=== PATIENT | male | born 1930 | race Caucasian/White ===

== ENCOUNTER 2017-07-26 14:31 | Emergency (ER) | payer MEDICARE ==
[~2017-07-26] VITALS: Ht 167.6 cm; Wt 61.4 kg
[2017-07-26] MEDS ORDERED: SIMVASTATIN20 M1 PO (16:02)
[2017-07-26 19:30] VITALS: BP 176/70
== END 2017-07-26 19:30 | disposition home or self-care (01) ==
LOC: ED 14:31
DX: I95.1 Orthostatic hypotension (principal); E86.0 Dehydration; S70.311A Abrasion, right thigh, initial encounter; S80.811A Abrasion, right lower leg, initial encounter; R07.89 Other chest pain; Z91.81 History of falling; V03.00XA Pedestrian on foot injured in collision with car, pick-up truck or van in nontraffic accident, initial encounter; Y92.89 Other specified places as the place of occurrence of the external cause
CPT/HCPCS: J7030

== ENCOUNTER → 2017-08-09 | Outpatient (CLI) | payer MEDICARE ==
[2017-07-26 19:30] VITALS: BP 176/70
[~2017-08-09] MED LIST: SIMVASTATIN20 M1 PO
== END ==
LOC: VAS 08-01 09:26
DX: I95.1 Orthostatic hypotension (principal)

== ENCOUNTER → 2020-01-20 | Outpatient (CLI) | payer MEDICARE | LOC: RAD 16:18 | DX: I08.2 Rheumatic disorders of both aortic and tricuspid valves (principal); R60.0 Localized edema ==

== ENCOUNTER 2020-11-07 11:34 | Emergency (ER) | payer MEDICARE ==
[2020-11-07 12:06] LABS: HEMATOCRIT 37.4 % (42.0-52.0); HEMOGLOBIN 12.2 g/dL (13.5-18.0); MEAN CELL VOLUME 97 fl (78-100); MEAN CORPUSCULAR HEMOGLOBIN 32 pg (27-31); MEAN CORPUSCULAR HGB CONC 33 g/dL (33-37); PLATELET COUNT 113 K/mm3 (130-400); RED BLOOD COUNT 3.85 M/mm3 (4.20-5.60); RED CELL DISTRIBUTION WIDTH 14.6 % (11.5-14.5); WHITE BLOOD COUNT 6.5 K/mm3 (4.8-10.8)
[2020-11-07 12:14] LABS: ALBUMIN 3.1 g/dL (3.4-4.8); POTASSIUM 3.6 mmol/L (3.5-5.1)
[2020-11-07 12:16] LABS: CALCIUM 8.4 mg/dL (8.3-10.5)
[2020-11-07 12:17] LABS: TOTAL PROTEIN 5.6 g/dL (6.2-8.1)
[2020-11-07 12:19] LABS: TOTAL BILIRUBIN 0.9 mg/dL (0.2-1.2)
[2020-11-07 12:31] LABS: LYMPHOCYTE 9 % (20-51); MONOCYTE 10 % (3-10); NEUTROPHILS 80 % (42-75)
[2020-11-07] MEDS ORDERED: CLONIDINE HYDR0.1 MG PO (12:53)
[2020-11-07] MEDS ORDERED: AMLODIPINE BESYL5 MG PO (12:53)
[2020-11-07] MEDS ORDERED: ASPIR-TRIN325 M1 PO (12:54)
[2020-11-07] MEDS ORDERED: LOSARTAN POTASS50 M1 PO (12:54)
[2020-11-07] MEDS ORDERED: FLOMAX0.4 MG PO (12:54)
[2020-11-07] MEDS ORDERED: LEVOTHYROXINE0.05 MG PO (12:54)
[2020-11-07] MEDS ORDERED: LOPRESSOR 225 MG/TAB PO (12:54)
[2020-11-07 18:04] LABS: URINE APPEARANCE HAZY; URINE BILIRUBIN NEGATIVE (NEGATIVE); URINE COLOR LT YELLOW; URINE GLUCOSE NEGATIVE (NEGATIVE); URINE KETONE 1+ (NEGATIVE); URINE PROTEIN(semi-quant) NEGATIVE (NEGATIVE); URINE UROBILINOGEN NORMAL (NORMAL)
[2020-11-07 18:05] LABS: URINE BLOOD 50 ery/uL (NEGATIVE); URINE LEUKOCYTE ESTERASE TRACE (NEGATIVE); URINE NITRATE NEGATIVE (NEGATIVE); URINE WBC 0-1 /hpf (0-3)
[2020-11-07 18:06] LABS: URINE MUCUS PRESENT (NOT PRESENT)
[2020-11-07 18:29] VITALS: BP 171/76
== END 2020-11-07 19:04 | disposition other institution (70) ==
LOC: ED 11:34
PROVIDERS: Family Medicine
DX: G45.9 Transient cerebral ischemic attack, unspecified (principal); I10 Essential (primary) hypertension; E78.5 Hyperlipidemia, unspecified; E03.9 Hypothyroidism, unspecified; Z79.82 Long term (current) use of aspirin; Z79.890 Hormone replacement therapy
CPT/HCPCS: J0360

== ENCOUNTER 2020-11-07 17:45 | Inpatient (IN) | payer MEDICARE ==
[~2020-11-07] VITALS: Ht 167.6 cm; Wt 52.6 kg
[~2020-11-07 17:45] MED LIST changes: +AMLODIPINE BESYL5 MG PO; +ASPIR-TRIN325 M1 PO; +CLONIDINE HYDR0.1 MG PO; +FLOMAX0.4 MG PO; +LEVOTHYROXINE0.05 MG PO; +LOPRESSOR 225 MG/TAB PO; +LOSARTAN POTASS50 M1 PO
--- NOTE | 2020-11-07 18:29 | NUR ---
PT ADMITTED TO ROOM 306 AT THIS TIME, STABLE CONDITION, ADMISSION ORDERS REVIEWED, COMPLEX ASSESSMENT COMPLETED AND CHARTED, PT INTERMITTENTLY CONFUSED, LEFT SIDED WEAKNESS, UNSTEADY WEAK GAIT, MULTIPLE FALLS AT HOME RECENTLY REPORTED BY FAMILY, C/O LOWER BACK PAIN, DENIES FURTHER COMPLAINTS, PARTIALLY ORIENTED TO PRESIENT AND SITUATION, ORIENTED TO ROOM, BED ALARM ON AND CALL LIGHT WITHIN REACH
[2020-11-07 18:31] VITALS: BP 178/63
[2020-11-07 18:38] VITALS: BP 178/63
--- NOTE | 2020-11-07 18:38 | NUR ---
COUGHING NOTED WITH SWALLOWING FLUIDS, NOTIFIED, NOTED
--- NOTE | 2020-11-07 19:20 | NUR ---
Report received from Ivonne CASTELLANOS. Lance resting in bed at this time. A/O x4. Speech slightly slurred. L side book cleaner weaker then right. States has some back/hip pain S/P falls at home. Rates 5-6/10. Sharp at times. States PCP advised to take Tylenol. Will notify Assessment completed. Denies wants or needs. Reviewed call light system and bed alarms. Verbalizes understanding.
--- NOTE | 2020-11-07 20:00 | NUR ---
Trial drinks of water tried per request of Dr. Fleming. Patient sat up high fowlers position in bed. Instructed to tuck chin when he swallows. Took cup and drank 3 large drinks with slight cough x1, able to clear. Dr. Fleming notified.
--- NOTE | 2020-11-07 20:30 | NUR ---
Patient requesting food. Has pudding earlier with help of day ELECTRONICS HARDWARE DESIGN ENGINEER and tolerated well per her report. Given tuna noodle casserole and Jello per Dr. Fleming suggestion. ELECTRONICS HARDWARE DESIGN ENGINEER reports patient at 2-3 bites of each and became nauseated. Stopped eating, had no emesis and nausea subsided quickly. Dr. Fleming notifed and aware.
--- NOTE | 2020-11-07 21:00 | NUR ---
[place] 1 tab taken at this time for pain. No coughing noted with this med.
[2020-11-07 21:49] VITALS: BP 193/65
--- NOTE | 2020-11-08 01:56 | NUR ---
Patient awakened out of a sound sleep for vital signs. B/P improved. Less oriented then previous and would not lift L leg and L arm as well. Keeps falling asleep during assessment. Denies pain. Repositioned up in the bed and uses urinal with assist of INTERNATIONAL LOGISTICS COORDINATOR
[2020-11-08 01:59] VITALS: BP 163/75
[2020-11-08 05:53] VITALS: BP 180/71
--- NOTE | 2020-11-08 06:59 | NUR ---
Report to Maren CASTELLANOS.
--- NOTE | 2020-11-08 10:00 | NUR ---
Pt a/o x 4. C/O back pain - nothing new but has been falling at home he states. Abrasion to left forehead with some scabbing starting - no active bleeding or drainage noted. Pt Has unequal potato chip cooker machine with hands - weak with left hand and unable to lift left arm without assistance (less use than yesterday). aware of change. IV intact in left ac with r/s. Tele shows RSR with rates 60-90's. Call light in reach and chair alarm on.
[2020-11-08 10:19] VITALS: BP 188/70
--- NOTE | 2020-11-08 11:06 | NUR ---
Son calls to check on pt and will call later this afternoon when pt's is also able to talk.
--- NOTE | 2020-11-08 12:45 | NUR ---
Discussed thickened liquids with patient. Pt has done well with a few sips of H20 and tucks chin with swallowing. Took whole pills well without coughing. Pt verbalizes understanding to follow thickened liquids until see ST tomorrow. Report to EMANUEL Hanks.
[2020-11-08 14:07] VITALS: BP 187/68
--- NOTE | 2020-11-08 14:33 | NUR ---
Report received from Ani Moya RN and care assumed. Pt resting in bed with no needs or concerns at this time. Call light in reach, bed alarm on.
--- NOTE | 2020-11-08 18:01 | NUR ---
Pt requests [place] for back and hip pain since it helps right before bed. [place] 1 tab given per PRN orders. Pt took pill whole with thickened liquid. Tucked chin and no coughing or difficulting taking pill.
[2020-11-08 18:02] VITALS: BP 178/66
--- NOTE | 2020-11-08 18:56 | NUR ---
Report given to Jeff Rosario, FRAMING CARPENTER and care transferred.
--- NOTE | 2020-11-08 19:13 | NUR ---
Report received from Latonya CASTELLANOS. Patient resting in bed with bed alarm on. Call light in reach. Drowsy but oriented x4. Rates pain to back and hips 4/10 after receiving [place] at 1800. TELE in place with HR of 62. NSR. INT intact to L AC. Racebook Writer unequal with L arm noted to be more weak then last night and unable to lift off of bed without assist. L leg weaker as well, can lift off bed slightly independently. Uses urinal and voids 100 ML of yellow cloudy urine. Denies wants or needs at this time.
[2020-11-08 21:34] VITALS: BP 180/65
[2020-11-09 02:22] VITALS: BP 176/69
--- NOTE | 2020-11-09 04:13 | NUR ---
[place] given for pain to neck and back /. Swallows with thickened liquid withoout difficulty. No search engine marketing strategist or movement without assist to L arm.
[2020-11-09 05:52] VITALS: BP 174/66
--- NOTE | 2020-11-09 07:25 | NUR ---
Report to Afua CASTELLANOS.
[2020-11-09 09:56] VITALS: BP 155/69
[2020-11-09 14:43] VITALS: BP 195/61
--- NOTE | 2020-11-09 15:15 | NUR ---
A BP OF 195/61 IS REPORTED TO MICKIE SMITH AT THIS TIME. MAGUE GIVES AN ORDER TO GIVE AN EXTRA 5MG DOSE OF AMLODIPINE AT THIS TIME AND SHE WILL INCREASE THE DOSE TO 10MG TONIGHT.
--- NOTE | 2020-11-09 16:00 | NUR ---
Clinicals faxed to [facility] phone [phone] x [phone] Pending Auth number [id number]
--- NOTE | 2020-11-09 16:01 | NUR ---
Spoke with Dashawn Zhang. Provided him with the information that his dad will likely not be able to return home to provide care for their mother. Advised that his stroke has left him unable to assist himself on his left side. We would like to keep him for SWB and look to detention placement with assisted living for he and his or mold clamper care.
[2020-11-09 17:45] VITALS: BP 149/60
--- NOTE | 2020-11-09 18:10 | NUR ---
pt is c/o back pain. states it is a 7 out of 10. pt is provided prn pain medication for pain.
--- NOTE | 2020-11-09 19:00 | NUR ---
Report recevied from Afua CASTELLANOS. Patient resting in bed with eyes closed. Awakens easily to verbal stimuli. Oriented x4. Rates pain to back/R hip 3/10 after received analgesic. Assessment completed. L arm remains flaccid, able to move fingers slightly. LLE weak and able to lift barely off of bed. Uses call light to make needs known. Is continent of urine. Denies wants or needs. Bed alarm on. Call light in reach.
--- NOTE | 2020-11-09 20:25 | NUR ---
HS medications given. Takes whole with thickened liquids and no choking or coughing noted. B/P 167/74. Per Sandrine CORADO, only give extra dose of Norvasc tonight if Systolic over 180.
[2020-11-09 21:17] VITALS: BP 167/74
--- NOTE | 2020-11-09 23:58 | NUR ---
Patient noted to have episodes of frequent PVC's tonight. Asymptomatic. Provider notified.
[2020-11-10 02:16] VITALS: BP 166/69
--- NOTE | 2020-11-10 05:38 | NUR ---
Rested well all shift. Denied need for analgesic when this nurse inquired through the night. Staff in to help repositon in the bed but patient declined need. Called and used urinal PRN. Took AM medications whole with thickened liquids without difficulty.
[2020-11-10 06:09] VITALS: BP 154/78
--- NOTE | 2020-11-10 07:16 | NUR ---
Report to Norman CASTELLANOS.
--- NOTE | 2020-11-10 07:50 | NUR ---
Shift assessment completed. Pt pivot transferred to chair with 2 person assist. Reporting pain to his back. Pt alert and oriented to person, place and time. Pt with left-sided weakness. Unable to raise his left arm but able to move fingers slightly. Pt able to raise both legs but L. leg drifted. Pt unsure when his last BM was. Questionable vision changes to L. peripheral. Call light in reach.
--- NOTE | 2020-11-10 07:50 | NUR ---
Report received from EMANUEL Mcnamara.
[2020-11-10 09:43] VITALS: BP 172/78
[2020-11-10 10:29] LABS: HEMOGLOBIN 12.7 g/dL (13.5-18.0); MEAN CELL VOLUME 98 fl (78-100); MEAN CORPUSCULAR HEMOGLOBIN 32 pg (27-31); MEAN CORPUSCULAR HGB CONC 33 g/dL (33-37); MEAN PLATELET VOLUME 11.5 fl (7.4-10.4); PLATELET COUNT 155 K/mm3 (130-400); RED BLOOD COUNT 3.99 M/mm3 (4.20-5.60); RED CELL DISTRIBUTION WIDTH 14.9 % (11.5-14.5)
[2020-11-10 10:46] LABS: ALBUMIN 3.1 g/dL (3.4-4.8); POTASSIUM 3.9 mmol/L (3.5-5.1)
[2020-11-10 10:47] LABS: CALCIUM 8.5 mg/dL (8.3-10.5)
[2020-11-10 10:49] LABS: TOTAL PROTEIN 5.7 g/dL (6.2-8.1)
[2020-11-10 10:50] LABS: TOTAL BILIRUBIN 0.7 mg/dL (0.2-1.2)
[2020-11-10 11:30] LABS: LYMPHOCYTE 13 % (20-51); MONOCYTE 9 % (3-10); NEUTROPHILS 76 % (42-75)
--- NOTE | 2020-11-10 12:05 | NUR ---
Order received for pt to be discharged from acute to B care.
[2020-11-10 13:13] VITALS: BP 172/78
[2020-11-10 15:35] LABS: URINE APPEARANCE CLEAR; URINE BILIRUBIN NEGATIVE (NEGATIVE); URINE BLOOD NEGATIVE (NEGATIVE); URINE COLOR YELLOW; URINE GLUCOSE NEGATIVE (NEGATIVE); URINE KETONE NEGATIVE (NEGATIVE); URINE LEUKOCYTE ESTERASE NEGATIVE (NEGATIVE); URINE NITRATE NEGATIVE (NEGATIVE); URINE PROTEIN(semi-quant) 1+ mg/dL (NEGATIVE); URINE UROBILINOGEN NORMAL (NORMAL)
[2020-11-10 15:36] LABS: URINE MUCUS PRESENT (NOT PRESENT)
== END 2020-11-10 13:00 | disposition swing bed (61) | DRG 65 ==
LOC: MED/SURG 17:45
PROVIDERS: Physician Assistant; ADMIT Family Medicine
DX: I63.9 Cerebral infarction, unspecified (principal); G81.94 Hemiplegia, unspecified affecting left nondominant side; E46 Unspecified protein-calorie malnutrition; Z68.1 Body mass index [BMI] 19.9 or less, adult; I10 Essential (primary) hypertension; E03.9 Hypothyroidism, unspecified; R13.10 Dysphagia, unspecified; M54.5 Low back pain; D64.9 Anemia, unspecified; R53.81 Other malaise; Z79.82 Long term (current) use of aspirin; Z86.73 Personal history of transient ischemic attack (TIA), and cerebral infarction without residual deficits; Z91.81 History of falling

== ENCOUNTER 2020-11-10 12:02 | Inpatient (IN) | payer MEDICARE ==
[~2020-11-10] VITALS: Ht 167.6 cm; Wt 52.6 kg
[2020-11-10 12:39] VITALS: BP 172/78
--- NOTE | 2020-11-10 12:45 | NUR ---
TRANSFER FROM ACUTE TO SWING BED STATUS.
[2020-11-10 13:14] VITALS: BP 172/78
--- NOTE | 2020-11-10 16:15 | NUR ---
Spoke with Robert about [facility]. He is willing to Speak with someone there.
--- NOTE | 2020-11-10 16:59 | NUR ---
Pt resting in bed. Pt refused to get up for dinner. States that he is not hungry but states that he doesn't really eat much at baseline. Pt denies pain or discomfort at this time.
[2020-11-10 17:31] VITALS: BP 168/72
--- NOTE | 2020-11-10 19:20 | NUR ---
REPORT PROVIDED TO TERRELL CASTELLANOS.
--- NOTE | 2020-11-10 20:20 | NUR ---
PT RESTING IN BED AWAKE, PLEASANT AND APPROPRIATE. PT IS LAERT AND OX4. PT REPORTS SOME MILD PAIN TO BACK AND BILAT HIPS, RATES AT 2/10 CURRENTLY AND PT IS REQUESTING PAIN MEDS; NO MEDS AVAILABLE PER ORDERS AT THIS TIME; WILL CONTACT DOCTOR. PT IS WEAK TO LEFT SIDE AND IS UNABLE TO TUBING DRIER OR PRESS WITH L EXTREMITIES. SCD'S PLACED ON BILAT. PT DENIES ANY SOB, OTHER C/O. REPORTS LBM WAS TUESDAY 11/06, DENIES CONSTIPATION. PT REPOSITIONED TO R SIDE WITH PILLOWS PLACED FOR COMFORT. CALL LIGHT WITHIN REACH.
[2020-11-11 06:13] VITALS: BP 168/70
--- NOTE | 2020-11-11 06:13 | NUR ---
PT HAS RESTED QUIETLY THROUGH THE NIGHT WITHOUT ANY ISSUES. PT DENIES PAIN AT THIS TIME. REPOSITIONED FOR COMFORT EVERY 2-3 HOURS WITH PILLOWS PLACED FOR COMFORT. PT DENIES ANY NEEDS OR CONCERNS AT THIS TIME. CALL LIGHT WITHIN REACH.
--- NOTE | 2020-11-11 06:50 | NUR ---
Report received from EMANUEL Valdez.
--- NOTE | 2020-11-11 09:25 | NUR ---
Pt with increased swelling to L. hand. Pt unable to move L. fingers and arm flaccid. Pt reports that he still has sensation to arm. Pt able to keep bilateral legs elevated when raised but L. leg drifts. L. leg weaker when pushing toes against my hands. Pt also reporting that was having trouble staying awake but also reporting pain. Only PRN pain medication available is [place]. Discussed concerns with MICKIE Olivia. New orders to follow.
--- NOTE | 2020-11-11 12:00 | NUR ---
Pt reporting pain and requesting PRN norco. Reports that pain is really bad and requesting not to have get up out of bed. Pt encouraged that change in position may help with pain. Pt agreeable to get up to the chair for lunch. PRN [place] provided.
--- NOTE | 2020-11-11 13:05 | NUR ---
Pt reports that he still has pain, 04/05. Offered to help pt reposition, but he declined stating pain was better when he didn't move.
--- NOTE | 2020-11-11 16:00 | NUR ---
Pt having ECHO completed at this time. Asked him if he was having pain and if he would like anything for it and he said "not particularly". Pt resting in bed on his L. side for the ECHO. Will follow up with him again after ECHO.
--- NOTE | 2020-11-11 16:44 | NUR ---
Pt reseting in bed. Reassessed pain and pt had slow verbal responses. Unsure if it was due to not being able to hear or cognition. When questions were repeated and pt able to state year and his age. Pt able to verbalize pain to back and R. hip, worse with movement. Originally states that pain was "not very expensive" but when reasked, rates pain 7/10. PRN [place] given.
[2020-11-11 17:19] VITALS: BP 164/59
--- NOTE | 2020-11-11 19:10 | NUR ---
Report given to EMANUEL Mcnamara.
[2020-11-12 06:22] VITALS: BP 169/62
--- NOTE | 2020-11-12 11:37 | NUR ---
First visit from the inclined railway operator. Laundry Clerk helped patient call his . No other needs right now.
[2020-11-12 17:16] VITALS: BP 187/55
--- NOTE | 2020-11-12 19:41 | NUR ---
Report received from Afua CASTELLANOS. Patient resting in bed. A/O x4. Denies pain at this time but has back pain with movement. Would like analgesic with HS medications. LUE remains flaccid with no production assembly supervisor. LLE weak. Compression glove in place to L hand. SCD's to BLE. Denies wants or needs. Bed alarm on. Call light in reach.
--- NOTE | 2020-11-13 04:25 | NUR ---
Incontinent of urine. Umm-cares provided. Repositioned to his side. Denies pain or needs.
[2020-11-13 06:27] VITALS: BP 171/67
--- NOTE | 2020-11-13 07:02 | NUR ---
Report to Germaine CASTELLANOS.
[2020-11-13 18:04] VITALS: BP 166/63
--- NOTE | 2020-11-13 19:37 | NUR ---
REPORT GIVEN TO UCHE BOYD. PATIENT RESTING IN ROOM IN BED AT THIS TIME. PATIENT IS A 2:1 ASSIST TRANSFER TO CHAIR AND COMMODE. PATIENT WATCHING TV AND DENIES NEED AT THIS TIME.
[2020-11-14 05:43] VITALS: BP 152/60
[2020-11-14 17:30] VITALS: BP 174/65
--- NOTE | 2020-11-14 19:10 | NUR ---
Report received from Kay CASTELLANOS. Patient resting supine in bed. L arm elevated on a pillow. A/O x4. Flat, depressive affect. Rates pain to L hip 4/10. Pillow placed underneath and propped off of it per request. LLE remains weak and only able t lift slighly off of bed for a brief time. Assessment completed. Denies wants or needs. TELE in place NSR with occasional PVC's noted.
--- NOTE | 2020-11-15 04:36 | NUR ---
Rested well all shift. Has not used call light for needs. Staff in to reposition PRN. Medicated for pain PRN. Continues to have a flat affect.
[2020-11-15 05:46] VITALS: BP 151/61
--- NOTE | 2020-11-15 07:16 | NUR ---
Report to Kay CASTELLANOS.
[2020-11-15 17:21] VITALS: BP 133/63
--- NOTE | 2020-11-15 19:30 | NUR ---
Report received from Kay CASTELLANOS. Patient resting in bed. A/O x4. Denies pain at this time. More talkative tonight then last night. LUE remains flaccid. LLE very weak. Assessment completed. SCD's on BLE. Bed alarm on. Call light in reach.
--- NOTE | 2020-11-15 21:29 | NUR ---
Calls to try and have a BM. Up to BSC with MAX 2:1 pivot transfer. Voids, unable to have BM at this time. Assisted back to bed. Positioned on R side. SCD's in place. Bed alarm on. Call light in reach.
--- NOTE | 2020-11-16 04:47 | NUR ---
Incontinent of urine x2 this shift. Converses more with staff and did use call light for urinal. Tylenol taken this AM for pain prevention. Repositioned PRN for comfort.
[2020-11-16 05:29] VITALS: BP 129/68
--- NOTE | 2020-11-16 06:55 | NUR ---
Report received from UCHE Anton.
--- NOTE | 2020-11-16 07:07 | NUR ---
Report to Kortney CASTELLANOS.
[2020-11-16 17:33] VITALS: BP 155/70
--- NOTE | 2020-11-16 18:59 | NUR ---
Report given to UCHE Anton.
--- NOTE | 2020-11-16 20:40 | NUR ---
Report received from Kortney CASTELLANOS. Resting in bed. Oriented x4. Rates pain to L hip/back 05/06. [place] taken with HS medications at this time. PRN Miralax taken also. Assessment completed. L side remains flaccid. Bed alarm on. Call light in reach..
[2020-11-17 04:48] VITALS: BP 137/60
--- NOTE | 2020-11-17 05:47 | NUR ---
Rested well through the night, used urinal PRN with no incontinence noted by CHEMISTRY TECHNOLOGIST. Medication for L hip/back pain provided PRN.
[2020-11-17 06:47] LABS: BASO # 0.1 (0.02-0.10); EOS # 0.3 (0.04-0.40); EOS % 4.1 % (0.0-4.0); HEMATOCRIT 35.8 % (42.0-52.0); HEMOGLOBIN 11.5 g/dL (13.5-18.0); LYMPH# 1.2 (1.50-4.00); MEAN CELL VOLUME 99 fl (78-100); MEAN CORPUSCULAR HEMOGLOBIN 32 pg (27-31); MEAN CORPUSCULAR HGB CONC 32 g/dL (33-37); MEAN PLATELET VOLUME 11.1 fl (7.4-10.4); MONO # 0.7 (0.20-0.80); NEU # 4.3 (1.40-6.50); PLATELET COUNT 228 K/mm3 (130-400); RED BLOOD COUNT 3.62 M/mm3 (4.20-5.60); RED CELL DISTRIBUTION WIDTH 14.3 % (11.5-14.5); WHITE BLOOD COUNT 6.5 K/mm3 (4.8-10.8)
[2020-11-17 06:50] LABS: ALBUMIN 2.8 g/dL (3.4-4.8); POTASSIUM 4.4 mmol/L (3.5-5.1)
[2020-11-17 06:51] LABS: CALCIUM 8.5 mg/dL (8.3-10.5)
[2020-11-17 06:54] LABS: TOTAL BILIRUBIN 0.4 mg/dL (0.2-1.2)
--- NOTE | 2020-11-17 07:05 | NUR ---
Report to Germaine CASTELLANOS.
--- NOTE | 2020-11-17 16:59 | NUR ---
PATIENT RESTING SITTING IN CHAIR. PATIENT IS REFUSING TO EAT SUPPER AND WOULD LIKE TO WAIT A WHILE. PATIENT STATES HE IS TIRED AND JUST WANTS TO SLEEP A LITTLE MORE. PATIENT WILL BE OFFERED A BOOST SHAKE LATER.
[2020-11-17 17:13] VITALS: BP 144/60
--- NOTE | 2020-11-17 17:38 | NUR ---
spoke with discharge planning team today and PT states that Mr. Zhang will need more strengthning before going to [facility]. Spoke with Son, Dsahawn and he and his dad are agreeable for inpatient rehab in the future. Dashawn and Mr. Jones are agreeable to [facility] in [place]. Dashawn also would like for his dad to give us his advance directives and potentially a DNR on file for him. Wyatt Booth will be asked to speak with patient on . Laurence from [employer] will be in to speak with him this week. Advised Dashawn where his dad was currently
--- NOTE | 2020-11-17 18:43 | NUR ---
REPORT GIVEN TO UCHE MARTÍNEZ
--- NOTE | 2020-11-17 19:09 | NUR ---
Report received from Germaine CASTELLANOS. Resting supine in bed with LUE elevated on a pillow. A/O x4. Somewhat flat affect but converses with this nurse. Rates pain to hips/back 3/10 after analgesic given at 1800. Assessment completed. SCD's in place to BLE. Bed alarm on. Call light in reach.
--- NOTE | 2020-11-17 23:04 | NUR ---
Voids 200 ML in urinal and incontinent of urine. Repostioned with isidro cares given. Denies pain or need for analgesic.
--- NOTE | 2020-11-18 01:31 | NUR ---
Report to Radha CASTELLANOS.
[2020-11-18 06:09] VITALS: BP 156/71
--- NOTE | 2020-11-18 06:45 | NUR ---
Report received from EMANUEL Garcia.
--- NOTE | 2020-11-18 09:24 | NUR ---
Called Rema Richmond to see if he would discuss advance directives with Mr. Zhang.
--- NOTE | 2020-11-18 11:56 | NUR ---
Notified by CNAs that pt refusing to get up for lunch. Pt reported dizziness with PT. Pt continues to report back pain. PRN norco to be given.
--- NOTE | 2020-11-18 17:45 | NUR ---
Pt agreeable to get up to chair for dinner. Pt required 2 person, max assist with pivot transfer to chair. Pt offer some PRN pain medication and he was agreeable to take some tylenol. Pt with very flat affect. Asked if he thought talking to his over a video call would help him feel better, pt stated that he thought he would like that. Call placed to pt's , but unable to reach her at her number. Call placed to pt's son, Dashawn. He said that he was not with his mom at this time but that he would be able to help her with a FaceTime call tomorrow around 12:15-12:30.
[2020-11-18 18:06] VITALS: BP 159/58
[2020-11-19 06:08] VITALS: BP 169/66
--- NOTE | 2020-11-19 12:36 | NUR ---
CHLOÉ PENA OT DEMONSTRATING TO THIS NURSE AND HOLLY RUBBER AND POUNDER APPROPRIATE TRANSFER USING 1:1 STAND AND PIVOT WITH ANOTHER STAFF MEMBER FOR SAFETY AND SUPPORT, PT TOLERATED TRANSFER WELL, WILL DEMONSTRATE TO ONCOMING STAFF AT SHIFT CHANGE
--- NOTE | 2020-11-19 12:37 | NUR ---
PT FACETIMING WITH ON HOSPITALS IPAD, PT SMILING AND IN JOYFUL SPIRITS, TEARFUL BUT TALKATIVE AND ABLE TO COMMUNICATE WELL USING IPAD, WILL ALLOW PT AND /FAMILY TO VISIT AT THIS TIME
--- NOTE | 2020-11-19 12:53 | NUR ---
PT PARTICIPATING WELL IN THERAPY, GOOD PO INTAKE THIS SHIFT, SPIRITS APPEAR LIFTED FROM PREVIOUS DAYS, SMILING AND DENIES NEEDS AT THIS TIME
--- NOTE | 2020-11-19 15:56 | NUR ---
PT INCONTINENT OF BM X2 THIS SHIFT, PT STATES HE "DOESN'T KNOW WHEN HE'S GOING," LARGE SOFT FORMED BM, PT DRINKING ENSURE SHAKES WELL, ENCOURAGED TO EAT SOLID FOOD WITH SUPPER IN ORDER TO HELP THICKEN STOOLS
[2020-11-19 17:14] VITALS: BP 159/68
--- NOTE | 2020-11-19 19:00 | NUR ---
Report received from Ivonne CASTELLANOS.
--- NOTE | 2020-11-19 20:30 | NUR ---
Patient rests in bed. Awakened for meds and swallows without problems. Reports left hip pain but unable to rate and tylenol 650mg given. Alert and oriented.
--- NOTE | 2020-11-19 22:12 | NUR ---
Rests with eyes closed.
--- NOTE | 2020-11-20 01:20 | NUR ---
Patient rests with eyes closed.
[2020-11-20 05:27] VITALS: BP 138/63
--- NOTE | 2020-11-20 05:53 | NUR ---
Patient awakened and repositioned up in bed. Denies needs.
[2020-11-20 17:10] VITALS: BP 157/62
--- NOTE | 2020-11-21 01:00 | NUR ---
Report received from Socorro CASTELLANOS.
[2020-11-21 05:55] VITALS: BP 137/57
--- NOTE | 2020-11-21 06:01 | NUR ---
Awake and assisted to use urinal. Denies needs.
--- NOTE | 2020-11-21 13:59 | NUR ---
PT YELLING OUT FOR , INTERMITTENT CONFUSION BUT REORIENTED EASILY AT THIS TIME, ABLE TO TELL ME HE WAS STILL AT [facility] BUT WONDERED "WHERE HIS WAS AND WHEN SHE WAS COMING BACK," PT RESTING IN BED, STATES "WELL I THINK I'M GETTING WORSE BEING HERE AND NOT BETTER," PT WEAK THIS SHIFT BUT NO SIGINIFICANT ACUTE CHANGES OTHER THAN THIS EPISODE OF CONFUSION, NOTIFIED, URINE BEING OBTAINED TO UA SAMPLE AT THIS TIME, NO FURTHER ORDERS
[2020-11-21 18:12] VITALS: BP 121/70
--- NOTE | 2020-11-21 18:16 | NUR ---
PT UP IN CHAIR, EATING SUPPER, ALERT AND ORIENTED TO SITUATION, URINE SAMPLE COLLECTED AND SENT TO LAB, RESULTS PENDING, VITAL SIGNS STABLE, DENIES PAIN OR NEEDS, WILL CONTINUE TO MONITOR
[2020-11-21 18:45] LABS: URINE APPEARANCE CLOUDY; URINE BILIRUBIN NEGATIVE (NEGATIVE); URINE BLOOD NEGATIVE (NEGATIVE); URINE COLOR YELLOW; URINE GLUCOSE NEGATIVE (NEGATIVE); URINE KETONE NEGATIVE (NEGATIVE); URINE LEUKOCYTE ESTERASE NEGATIVE (NEGATIVE); URINE NITRATE NEGATIVE (NEGATIVE); URINE PROTEIN(semi-quant) 1+ mg/dL (NEGATIVE); URINE UROBILINOGEN NORMAL (NORMAL)
--- NOTE | 2020-11-21 19:38 | NUR ---
Report received from Ivonne CASTELLANOS. Patient resting supine in bed with TV on Primary Data station. A/O x4 but very flat affect. Denies pain but states it "hurts sometimes if moved". L arm remains flaccid. Elevated on pillow. PROM done by this nurse. Assessment completed. LLE with minimal movement. Denies wants or needs. Bed alarm on. Call light in reach.
--- NOTE | 2020-11-21 20:10 | NUR ---
HS medication taken whole with thickened water. PRN [place] taken. Encouraged Ensure for nutrition. Dr. Fleming aware of UA results.
--- NOTE | 2020-11-21 22:35 | NUR ---
Staff in room to offer urinal, check brief and reposition. Brief dry. Patient with very flat affect and will not converse with staff and barely answers questions when asked.
--- NOTE | 2020-11-22 04:58 | NUR ---
Incontinent of urine. Repositioned and isidro-cares by staff. Did not help staff with repositioning or rolling as he has done in the past. Remains very flat and stoic with cares.
[2020-11-22 05:36] VITALS: BP 144/66
--- NOTE | 2020-11-22 07:10 | NUR ---
Report to Lacey CASTELLANOS.
--- NOTE | 2020-11-22 09:45 | NUR ---
Robert was resting in his chair after breakfast when this RN went in the room to give mormning meds and perform assessment. Robert was alert and oriented x4 this morning, and was in a pleasant mood giving the care team complements and telling us a joke. 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 He was aslo able to lift the left leg at the knee, markedly weaker than the right side. He ate almost all of his breakfast, except his oatmeal. He is tolerating nectar thick fluids, and took his meds whole with the thickened liquid. He is not complaning of any pain or discomfort at this time. This RN and DIALYSIS CLINICAL MANAGER pivot transferred with 2:1 assist and he was able to help minimally, by shuffling his feet. Weak on transfer, and 2:1 pivot asssist seemed appropriate for Robert' and staff safety. He was transferred back to bed, with bed alarm on and call light with reach. No complaints or concerns presented to the care team at this time.
--- NOTE | 2020-11-22 12:46 | NUR ---
Ricky was transferred from bed to his chair to eat lunch. He did report some back pain with transferring, but denied pain medication at this time. Pain medication is to be administered prior to next transfer back to bed. He was able to be transferred with 2:1 pivot assist with Maren CASTELLANOS and SORTING AND FOLDING SUPERVISOR without complication. His lunch was brought to him along with nectar thick liquids. Call light within reach and chair alarm on at this time. No concerns or complaints presented to the care team at this time.
--- NOTE | 2020-11-22 13:19 | NUR ---
Robert resting comfortably in his chair, napping. Pain medication given to pre-medicate before transferring back to bed aroun 1400, per care team plans. No complaints at this time. Thickened ensure provided by INSTRUMENT AND ELECTRICAL TECHNICIAN. In chair with chair alarm on and call light within reach.
[2020-11-22 17:27] VITALS: BP 135/48
--- NOTE | 2020-11-22 18:30 | NUR ---
Robert transferred to chair using gait belt, pivot transfer 2:1 for dinner. He transferred well, and tried to help us with transferring. He does not have any more complaints of pain at this time, and stated that the pain medicine administered earlier helped his pain. No complaints or concerns presented to the care team at this time.
--- NOTE | 2020-11-22 18:58 | NUR ---
Report given to Cathi CASTELLANOS
--- NOTE | 2020-11-22 19:00 | NUR ---
Report received from Lacey CASTELLANOS.
--- NOTE | 2020-11-22 20:30 | NUR ---
Patient awakened for HS meds. Reviewed and given. Denies pain or needs.
--- NOTE | 2020-11-22 23:00 | NUR ---
Rests with eyes closed. Respirations with ease.
--- NOTE | 2020-11-23 05:15 | NUR ---
Patient awakened for med. Reports he slept well. Denies pain.
[2020-11-23 05:45] VITALS: BP 133/60
--- NOTE | 2020-11-23 08:45 | NUR ---
PT UP IN CHAIR, ATE WELL FOR BREAKFAST, DRINKING THICKENED WATER, REQUESTING PRN PAIN CONTROL FOR CHRONIC LOWER BACK PAIN, DENIES FURTHER NEEDS, FULLY ALERT AND ORIENTED, JOYFUL SPIRITS AND ASKING ABOUT "HOW ZAK WAS", SMILING AFFECT, DENIES ANY NEW PAIN OR ACUTE CHANGES, IN CHAIR WITH CALL LIGHT AND CHAIR ALARM UPON EXITING ROOM
--- NOTE | 2020-11-23 09:25 | NUR ---
MYRIAM WITH PT PRESENTS TO NURSES STATION STATING "CAN YOU COME CHECK ON MARNI, HE IS GOING UNRESPONSIVE," THIS NURSE PRESENTS TO ROOM AND PT IS IN WHEELCHAIR, DIAPHORETIC, PALE AND EYES ARE BEGGINING TO ROLL BACK INTO HIS HEAD, ASSISTED SUPINE INTO BED BY THERAPY, EKG OBTAINED, MAGUE CORADO AT BEDSIDE WELL MULTIPLE NURSING STAFF, INT PLACED TO RT FA, IV NARCAN GIVEN PER VERBAL ORDER, PT'S VITAL SIGNS NOW STABLE, EKG STABLE, PT BEGINS TO RESPOND, SMILING AND ANSWERING QUESTIONS APPROPRIATELY, SKIN COLOR BEGINNING TO PINK UP, NO WORSENING WEAKNESS FROM PREVIOUS ASSESSMENT THIS AM PRIOR TO EPISODE, FAMILY NOTIFIED BY ANETTE CASE MANAGEMENT, FAMILY REQUESTS TO ENSURE THAT PT IS A "DNR" IN THE COMPUTER SYSTEM, MAGUE CORADO NOTIFIED OF THIS CHANGE WELL, FAMILY REQUESTING TO COME SEE PATIENT, LAB DRAWN FROM IV STICK AND PENDING IN LAB, PT LOST CONTROL OF BOWEL AND BLADDER PRIOR TO GETTING BACK IN BED, PT CLEANSED IN BED, STILL COMMUNICATING WITH STAFF, ALERT AND ORIENTED BUT DROWSY, BED ALARM ON AND CALL LIGHT WITHIN REACH, TELE PLACED AND BEING MONITORED AT NURSES STATION
[2020-11-23 10:01] LABS: BASO # 0.1 (0.02-0.10); EOS # 0.4 (0.04-0.40); EOS % 2.7 % (0.0-4.0); HEMATOCRIT 41.3 % (42.0-52.0); HEMOGLOBIN 13.3 g/dL (13.5-18.0); LYMPH# 3.1 (1.50-4.00); MEAN CELL VOLUME 98 fl (78-100); MEAN CORPUSCULAR HEMOGLOBIN 32 pg (27-31); MEAN CORPUSCULAR HGB CONC 32 g/dL (33-37); MEAN PLATELET VOLUME 11.6 fl (7.4-10.4); MONO # 1.4 (0.20-0.80); NEU # 8.5 (1.40-6.50); PLATELET COUNT 265 K/mm3 (130-400); RED BLOOD COUNT 4.22 M/mm3 (4.20-5.60); RED CELL DISTRIBUTION WIDTH 14.3 % (11.5-14.5); WHITE BLOOD COUNT 13.5 K/mm3 (4.8-10.8)
[2020-11-23 10:08] LABS: ALBUMIN 3.5 g/dL (3.4-4.8); POTASSIUM 4.5 mmol/L (3.5-5.1)
[2020-11-23 10:10] LABS: CALCIUM 9.2 mg/dL (8.3-10.5)
[2020-11-23 10:11] LABS: TOTAL PROTEIN 5.9 g/dL (6.2-8.1)
[2020-11-23 10:13] LABS: TOTAL BILIRUBIN 0.4 mg/dL (0.2-1.2)
--- NOTE | 2020-11-23 10:30 | NUR ---
Pt family arrives and assisted to pt bedside. Pt unable to turn head to left where is positioned at bedside. Pt attempts to talk to son. Pt has difficulty forming words. Sandrine CORADO notified and is at bedside discussing plan of care with family.
[2020-11-23 10:57] LABS: D-DIMER 5.44 mg/L FEU (0.15-0.50)
--- NOTE | 2020-11-23 11:00 | NUR ---
CRITICAL DDIMER 5.4 REPORTED TO MAGUE CORADO
--- NOTE | 2020-11-23 11:03 | NUR ---
PT LYING IN BED, MINIMALLY VISITING WITH FAMILY AT BEDSIDE, POOR VISION IN LEFT VISUAL FIELD, INCREASING WEAKNESS TO LEFT SIDE, PT INTERMITTENTLY SMILING BUT DROWSY AND WEAK, MAGUE CORADO DISCUSSING PLAN OF CARE WITH AT THIS TIME
--- NOTE | 2020-11-23 11:24 | NUR ---
MAGUE CORADO AND THIS NURSE AT BEDSIDE ASSESSING PT, INCREASED SLURRING OF SPEECH SINCE THIS AM, PT STATES HE "DOES NOT FEEL THIS IS PAIN MEDICATION RELATED", REPEAT NARCAN ADMINISTERED PER ORDER, PT ALERT AND ORIENTED BUT STATES HE STILL IS FEELING INCREASINGLY DROWSY, ABSENT CORE CLEANER TO LEFT HAND AT THIS TIME, STATES HE DOES FEEL "WEAKER", MAGUE CORADO REMAINS AT BEDSIDE CONTINUING ASSESSMENT, COVID SWAB ORDERED REGARDING ELEVATED DDIMER PER MAGUE CORADO, NO FURTHER ORDERS AT THIS TIME
--- NOTE | 2020-11-23 12:06 | NUR ---
PT SUPINE IN BED, HOB ELEVATED SLIGHTLY, BREATHING IS STABLE, EVEN AND UNLABORED, APPEARS COMFORTABLE, EYES CLOSED AND HANDS FOLDED RESTING, BED ALARM ON, NPO FOR LUNCH UNTIL FURTHER ASSESSMENT FOR SAFETY WITH SWALLOWING FOLLOWING THIS MORNINGS EVENTS, PT EASILY AROUSEABLE AT THIS TIME TO VERBAL STIMULI
--- NOTE | 2020-11-23 12:27 | NUR ---
PROVIDER STATES TO CONTINUE NARCAN PRN IF PT BECOMES DROWSY AGAIN, TO NOTIFY HER WITH ANY ACUTE CHANGES, FAMILY TO CALL LATER TODAY TO DECIDE WHETHER OR NOT THEY ARE WANTING TO GO THE HOSPICE ROUTE OR NOT, NO OTHER ORDERS AT THIS TIME
--- NOTE | 2020-11-23 14:36 | NUR ---
PT ASLEEP IN BED, ORIENTED TO LOCATION AND CURRENT SITUATION, DENIES REMEMBERING ANY OF THIS MORNINGS EVENTS, PT'S BRIEF DRY AT THIS TIME, VERBAL ORDERS FROM MAGUE CORADO TO CONTINUE CURRENT DIET AND MONITOR CLOSELY FOR ANY COUGHING OR WORSENING ASPIRATION SIGNS, PT TURNED Q2H THIS SHIFT SINCE EPISODE THIS AM
--- NOTE | 2020-11-23 14:38 | NUR ---
DNR PAPERWORK REVIEWED AND SIGNED BY ALL APPROPRIATE PARTIES THIS MORNING, ALL FAMILY IN AGREEANCE AND PT AWARE OF CHANGES MADE TO CODE STATUS, ANETTE WITH CASE MANAGEMENT HAD MULTIPLE IN DEPTH CONVERSATIONS REGARDING PLAN OF CARE AND CURRENT HEALTH STATUS
--- NOTE | 2020-11-23 16:55 | NUR ---
PT VERY LETHARGIC/WEAK BUT AROUSED TO VERBAL STIMULI, UNABLE TO SAFELY STAND AND SIT UP IN CHAIR FOR SUPPER, REPOSITIONED IN BED FOR COMFORT AND WILL ASSIST WITH FEEDING AND DRINKING AN ENSURE SHAKE IF PT IS ABLE TO TOLERATE SAFELY, TELE STABLE HR:71 WITH FREQUENT PVC'S, PROVIDER AWARE OF TELE RESULTS, NO FURTHER CONCERNS AT THIS TIME
[2020-11-23 17:15] VITALS: BP 119/72
--- NOTE | 2020-11-23 18:05 | NUR ---
PT REMAINS ON A Q2H TURN SCHEDULE TO PREVENT SKIN BREAKDOWN, VITAL SIGNS STABLE, TELE STABLE, PT DRINKS 100% OF ENSURE DRINK WITH NO COUGHING OR SIGNS OF ASPIRATION, HOLLY COHEN REMAINS AT PT'S BEDSIDE THROUGHOUT DRINKING, PT REMAINS WEAK AND TIRED BUT STABLE AT THIS TIME, ANETTE WITH CASE MANAGEMENT REPORTS PT'S FAMILY IS NOT INTERESTED IN HOSPICE AT THIS TIME, WILL REEVALUATE PT IN THE MORNING REGARDING NEED FOR THERAPY AND ANY CHANGES IN PLAN OF CARE
--- NOTE | 2020-11-23 19:00 | NUR ---
Report received from Ivonne CASTELLANOS. Tele reads SR with occasional to frequent PVC's. Patient rests in bed with eyes closed.
--- NOTE | 2020-11-23 21:30 | NUR ---
Patient awakened for HS meds. Drowsy. Alert to , self,place but not time of day or year. States it's morning and year something. Pupils equal reactive. Weak slight hand negative cutter left and strong right. Able to LLE slightly off bed briefly. Lifts and holds RLE. Speech soft but clear. Denies numbness of tingling or visual problems. Denies pain. Repositioned to right side. Continent of urine.
[2020-11-24 05:58] VITALS: BP 107/47
--- NOTE | 2020-11-24 06:02 | NUR ---
Patient resting with eyes closed in between repositioning. Assisted to use urinal and incontinent of small amount of urine and changed.
[2020-11-24 18:00] VITALS: BP 137/72
--- NOTE | 2020-11-24 20:00 | NUR ---
Pt resting in bed when entering the room. Pt denies pain at this time. Awakes easily to his name, and sat up well for his medication. Pt denies any concerns at this time, will continue to monitor. Bed in lowest postion, call light within reach.
--- NOTE | 2020-11-25 01:10 | NUR ---
Report received from Jorge A CASTELLANOS.
[2020-11-25 06:07] VITALS: BP 121/66
[2020-11-25 09:40] VITALS: BP 103/40
[2020-11-25 10:21] VITALS: BP 106/59
[2020-11-25 17:53] VITALS: BP 126/48
--- NOTE | 2020-11-25 20:06 | NUR ---
Report received from Kay CASTELLANOS. Patient resting supine in bed. A/O x4 but quiet and reserved. Denies pain at this time. Assessment completed. Denies wants or needs. Staff into reposition and provide incontinent cares.
--- NOTE | 2020-11-25 22:49 | NUR ---
Set off bed alarm and noted by staff to have legs OOB. States he is "looking for his car". Assisted back to bed. Incontinent of urine/BM. Pericares by staff and repositioned for comfort. Reoriented to place/situation. 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 Wanting called to "tell her where I am" but staff reoriented to time of night and assured patient that knew where he was.
--- NOTE | 2020-11-26 03:49 | NUR ---
Call light went off. Staff to room. Patient observed with no covers on and attempting to crawl out of bed. Patient states he is "going to get his walker over there". Reorientated to place and situation. Urinal provided and patient urinates 200 ML of clear yellow urine. Repositioned with bed alarm on more sensitive setting. Call light in reach.
[2020-11-26 06:19] VITALS: BP 155/65
--- NOTE | 2020-11-26 06:23 | NUR ---
AM medication taken whole without difficulty. Patient remains restless at times and "wanting to get the car and go home". Staff continues to reorientate to situation.
--- NOTE | 2020-11-26 07:03 | NUR ---
Report to Ivonne CASTELLANOS.
--- NOTE | 2020-11-26 07:46 | NUR ---
PT CONFUSED AND CALLING OUT FOR HELP, PT ASKING "IS MY STILL ON THE FLOOR BESIDE ME," REORIENTED TO LOCATION AND SITUATION, PT BEGINS TO CALM DOWN AND REST AGAIN, BED ALARM ON AND CALL LIGHT WITHIN REACH AT THIS TIME
--- NOTE | 2020-11-26 08:00 | NUR ---
ANOOP GARCIA AND MISSY HELP PER MGAUE CORADO DUE TO LOW BP'S AND ORTHOSTATIC HYPOTENSION PREVIOUSLY REPORTED WHILE WORKING WITH THERAPIES RECENTLY, WILL CONTINUE TO MONITOR PT
[2020-11-26 08:42] VITALS: BP 118/68
--- NOTE | 2020-11-26 09:52 | NUR ---
Spoke with Owen Tamez. He would like to consider LTC for his dad and his mom both. [facility]errals [facility] to [facility]. Called [facility] with [facility]. Left voice message for [facility]. Called [facility]. Spoke with Yolanda. She states they have assisted living and fpc care. Fax Adm. Team the paper work. Fax #: [phone]. will need a CARE evaluation done by the [facility]. Will need to schedule the evaluation. Called [facility] spoke with Pam. they will consider. They do not have a double room for both and at this time. but would like to consider potential for admission.
--- NOTE | 2020-11-26 12:50 | NUR ---
PT TALKING TO HIMSELF, PT STATES HIS IS "SITTING BY THE WINDOW, AND HE IS TRYING TO GET HER TO EAT HIS LUNCH," PRIOR TO THIS EVENT PT ATTEMPTED TO VOID INTO HIS ENSURE SHAKE BOTTLE WELL INSISTED HE WAS IN [place] AT THE HOSPITAL FOR "BACK TALKING", PT REORIENTED, PLEASANT MOOD, LAUGHING AND JOKING WITH STAFF, PROVIDER NOTIFIED OF HALLUCINATIONS AND AMS
--- NOTE | 2020-11-26 16:52 | NUR ---
PT CONTINUES TO HAVE INCREASE IN SLURRED SPEECH AND NO LONGER IS ORIENTED, ONLY ORIENTED TO SELF, GIGGLING AND SMILING BUT UNABLE TO ANSWER QUESTIONS APPROPRIATELY, CURRENTLY STATES HE IS "NEEDING TO GET TO THE INSULIN STRIPS" AND IS REPEATEDLY TRYING TO GET OUT OF BED UNASSISTED, PT LAUGHING AND ACTING OUT OF SORTS FROM NORMAL BEHAVIOR, KHLOE DELEON APRN AT BEDSIDE ASSESSING PT, LABS AND CHEST XRAY ORDERED AT THIS TIME
[2020-11-26 17:13] LABS: EOS # 0.2 (0.04-0.40); EOS % 2.5 % (0.0-4.0); HEMATOCRIT 39.3 % (42.0-52.0); HEMOGLOBIN 12.6 g/dL (13.5-18.0); LYMPH# 0.9 (1.50-4.00); MEAN CELL VOLUME 99 fl (78-100); MEAN CORPUSCULAR HEMOGLOBIN 32 pg (27-31); MEAN CORPUSCULAR HGB CONC 32 g/dL (33-37); MEAN PLATELET VOLUME 11.5 fl (7.4-10.4); MONO # 0.7 (0.20-0.80); NEU # 5.4 (1.40-6.50); PLATELET COUNT 231 K/mm3 (130-400); RED BLOOD COUNT 3.96 M/mm3 (4.20-5.60); RED CELL DISTRIBUTION WIDTH 14.1 % (11.5-14.5); WHITE BLOOD COUNT 7.2 K/mm3 (4.8-10.8)
[2020-11-26 17:14] LABS: ALBUMIN 3.4 g/dL (3.4-4.8); POTASSIUM 4.5 mmol/L (3.5-5.1)
[2020-11-26 17:15] LABS: CALCIUM 9.2 mg/dL (8.3-10.5)
[2020-11-26 17:16] VITALS: BP 156/62
[2020-11-26 17:16] LABS: TOTAL PROTEIN 6.1 g/dL (6.2-8.1)
[2020-11-26 17:18] LABS: TOTAL BILIRUBIN 0.3 mg/dL (0.2-1.2)
--- NOTE | 2020-11-26 19:22 | NUR ---
Report from Ivonne CASTELLANOS. FEATHER SHAPER's in to do cares, patient incontinent of B&B. While moving patient to chair, he did not bear weight and also complained of back pain with movement. Now in bed. Currently A/O x4 flat affect. Has episodes of confusion and hallucinations. Scheduled HS medications taken at this time along with PRN Tylenol. Assessment completed. Encouraged PO supplement of Ensure.
--- NOTE | 2020-11-26 20:05 | NUR ---
Order received by Allen Pate to D/C SynapCell at this time. Skin irritation noted from TELE patches.
--- NOTE | 2020-11-27 01:48 | NUR ---
Observed by staff to have legs over bed rail. Incontinent of urine and talking "to those people back there". Pointing to wall behind head board. Incontinent cares provided by staff and repositioned for comfort. Remains confused to place and situation.
--- NOTE | 2020-11-27 05:32 | NUR ---
Awake most of the night and remains confused. AM medication and PRN Tylenol taken at this time with thickened water. Repositioned with incontient cares provided.
[2020-11-27 05:50] VITALS: BP 141/69
--- NOTE | 2020-11-27 07:17 | NUR ---
Report to Oliva CASTELLANOS.
--- NOTE | 2020-11-27 09:31 | NUR ---
Pt slow to awaken with initial rounds & assessment at 0730. He did open eyes and when asked to say his name, he stated "I do not have a name." When asked if his name is Robert or Ricky, he said "yeah." Some facial drooping, Left and the Left arm not opposing gravity. Hand counselling psychologist unequal. (See assessment.) Assisted to chair x2 persons with verbal cues and max assist. stand/pivot, using gait belt. Mobility alarms in use for patient stafey. Allen Ba LPN
[2020-11-27 11:55] VITALS: BP 147/61
--- NOTE | 2020-11-27 12:32 | NUR ---
At 1155 notied serosang. drainage from R nostril while lying in bed and positioned slightly to L side. Pt also had some clotted blood on pillow sheet and to R index finger. Assisted pt to clean face and used soap and water wash cloth to clean hands. Bleeding to R nostril had subsided. Pt alert; flat affect. Denied discomfort. Checked v/s: 147/61 (lying in bed, R arm); 70; 20; SpO2 96% Assisted up to chair for meal. Cont. nectar-thickened fluids and monitoring oral intake. Allen Ba lPN
--- NOTE | 2020-11-27 13:53 | NUR ---
Reluctant to eat lunch, but taking sips of nectar-thick fluids offered to him. He has been using R hand without diff. Encouraged patient to take fluids po. Allen Ba LPN
[2020-11-27 17:12] VITALS: BP 159/71
--- NOTE | 2020-11-27 19:02 | NUR ---
Pt was assisted to bed between meals to help relieve pressure from buttocks and turned to sides when in bed. He was assisted to bed at 1840; max assist. x2 with stand /pivot transfers. Report given to oncoming shift nurseSloane. Allen Ba, [facility]
--- NOTE | 2020-11-27 20:40 | NUR ---
Report from Oliva IVEY. Rests in bed. Flat affect, drowsy and confused. Denies pain. Assessment completed. Takes HS medications whole without difficulty. Vital signs obtained as patient appears lethargic vs sleepy. T 97.7 B/P 134/62 P 83 R 18 SAO2 98% on RA. Will continue to monitor. Bed alarm on. Call light in reach.
[2020-11-27 21:00] VITALS: BP 134/62
--- NOTE | 2020-11-27 21:00 | NUR ---
BRIM AND CROWN PRESSER in to do cares, reports patient awake and able to remove dentures for cleaning. Repostioned.
--- NOTE | 2020-11-28 01:36 | NUR ---
Yelling out for help. Requests and uses urinal. Void 225 ML of clear yellow urine. Brief slightly damp. Umm-cares provided and repositioned by staff. More alert or conversation appropriate then earlier in shift.
--- NOTE | 2020-11-28 05:01 | NUR ---
Awake, more alert this AM. Follows commands and answers questions appropriately. Denies pain. Takes AM Synthroid whole without difficulty. Repositioned with incontient cares by staff.
[2020-11-28 05:44] VITALS: BP 132/57
--- NOTE | 2020-11-28 07:20 | NUR ---
Report received from Jeff Rosario, [facility] and care assumed. Pt resting in bed with eyes closed and no signs of distress or discomfort at this time. Call light in reach, bed alarm on.
--- NOTE | 2020-11-28 07:29 | NUR ---
Report to Latonya CASTELLANOS.
--- NOTE | 2020-11-28 09:30 | NUR ---
Assessment completed. Pt states sensation in left extremities. Slight movement in fingers, elbow, shoulder, knee and toes on left side. Able to move all upon request, though movements are weak. Pt denies pain. Alert and oriented x4. Converses appropriately. No further needs at this time. Resting in chair, call light in reach, chair alarm on.
[2020-11-28 17:15] VITALS: BP 146/62
--- NOTE | 2020-11-28 23:08 | NUR ---
Report received from Maria Elena CASTELLANOS. Patient resting in bed on R side. Bed alarm on. Call light in reach. No signs of pain or distress.
--- NOTE | 2020-11-29 05:26 | NUR ---
AM medications taken this AM without diffculty. Patient alert and talkative with no confusion or hallucinations noted at this time. Repositioned by staff Q 2 hours.
[2020-11-29 05:54] VITALS: BP 111/57
--- NOTE | 2020-11-29 07:21 | NUR ---
Report to Kay CASTELLANOS.
--- NOTE | 2020-11-29 08:30 | NUR ---
patient sitting up in recliner eating breakfast. shift assessment complete. patient alert and oriented x4. reports having pain in hip/low back. states "well i didn't sleep too good. my right hip was aching and i couldn't seem to get comfortable" patient reports pain has improved since getting tylenol. states "oh it's nothing too bad" when asked to rate pain. rates it at 8/10. patient deneis any shortness of breath or difficulties breathing. patient's call light within reach. chair alarm on.
[2020-11-29 18:02] VITALS: BP 114/64
--- NOTE | 2020-11-29 19:00 | NUR ---
Report received from Kay CASTELLANOS. Patient up in [facility]. Patient is alert and oriented at this time. Has a little trouble with year but to be expected with change. Able to move L arm some and shoulder and wrist. Able to life L leg on command and it falls back to bed. Patient in better spirits today and happy with progress of movenment. "it's been three weeks I ought to be able to do something.". Denies pain. Assessment completed. MANAGEMENT DEVELOPER's in to assist to bed and position for comfort.
--- NOTE | 2020-11-29 19:09 | NUR ---
REPORT GIVEN TO TANYA COPE LPN
--- NOTE | 2020-11-29 19:38 | NUR ---
WOOD FENCE ERECTOR reports that patient did help transfer this evening and beared weight compared to past of being a lift.
--- NOTE | 2020-11-30 | NUR ---
Calls to use urinal. Brief dry. Repositioned by staff. Denies pain. Remains alert.
[2020-11-30 06:09] VITALS: BP 119/59
--- NOTE | 2020-11-30 06:39 | NUR ---
Awake most of the night.. No hallucinations or confusion noted this shift. Called for urinal and no incontinence noted. No BM after Miralax.
--- NOTE | 2020-11-30 07:03 | NUR ---
Report to Kay CASTELLANOS.
[2020-11-30 18:16] VITALS: BP 137/52
--- NOTE | 2020-11-30 20:00 | NUR ---
Pt was resting in bed when entering the room. A&O to self, and month. Pt denies pain at this time. Pt was able to wiggle his fingers/toes and slightly raise his leg/arm to the left side. No concerns at this time. Will continue to monitor. Bed in lowest position, alarm on, and call light within reach.
[2020-12-01 05:54] VITALS: BP 133/61
--- NOTE | 2020-12-01 13:00 | NUR ---
a small open red area is noted to the coccyx at this time. it is approximately 2cm long and red in color. epidermis layer of skin noted to be sheered off the area. a mepilex dressing was placed on the wound this a.m. and Afia Pate APRN is notified of wound.
[2020-12-01 16:41] VITALS: BP 132/65
--- NOTE | 2020-12-01 17:30 | NUR ---
Spoke with Dashawn, son and DPOA of Robert. Advised him that [facility] and [facility] is both interested in having Ricky being admitted on Monday. 12-01-19 He and his family have decided to go with [facility] at this time. Spoke with Pam from [facility] and they are able to accomidate both Ricky and his . [facility] is at this time only able to take Ricky. Advised Pam that Ricky's next reveiw date is 12/03/2020. Monday is the anticipated discharge date to [facility] for Ricky. [facility] will come for Ricky in the morning on Monday12/04/2020. Also received a call from Gale from [facility]. They will plan to have Ricky's evaluation done next week at [facility].
--- NOTE | 2020-12-01 20:00 | NUR ---
Pt was resting in bed when entering the room. Pt is A&Ox3. Pt denies pain at this time but requests tylenol with is HS medications. Pt was able to move left arm and leg, and wiggle his toes and fingers. No concerns at this time. Bed in lowest position, call light within reach.
[2020-12-02 06:34] VITALS: BP 152/61
--- NOTE | 2020-12-02 07:00 | NUR ---
Report received from [facility] Arredondo.
[2020-12-02 18:00] VITALS: BP 123/50
[2020-12-03 06:09] VITALS: BP 110/59
--- NOTE | 2020-12-03 07:19 | NUR ---
Report given to Mayra Weiss RN
--- NOTE | 2020-12-03 07:32 | NUR ---
AWAKE IN BED. REPORTS RESTING WELL. NOT USUALLY A MORNING PERSON, BUT TODAY APPEARS RESTED. TALKATIVE. ASSIST WITH BED MOBILITY. PIVOT TRANSFER FROM BED TO CHAIR. LT SIDED WEAKNESS TO TORSO; UNABLE TO SIT UPRIGHT INDEPENDENTLY. MINIMAL MOVEMENT TO LT ARM AND LEG. SENSATION INTACT TO EXTREMITIES. BACK DISCOMFORT FROM BEING IN BED PER PATIENT REPORT. CALL LIGHT IN REACH.
--- NOTE | 2020-12-03 14:17 | NUR ---
TOENAILS TRIMMED. NOW RESTING IN BED ON RT SIDE. SCD'S IN PLACE.
--- NOTE | 2020-12-03 15:07 | NUR ---
Spoke with Pam at [facility]. She would like to get Ricky 12/04/20 at 10:30 am and take him to LT. DNR and DPOA sent to Pam secure mail. Called Dashawn and he was needing the DNR and that was faxed to his work fax per his request.
--- NOTE | 2020-12-03 15:16 | NUR ---
Attempted to visit with Robert regarding tomorrow. His transfer to [facility]. He was sleeping. Will attempt later in the day.
--- NOTE | 2020-12-03 15:17 | NUR ---
[facility] [place] today or tomorrow to his location.
[2020-12-03 17:53] VITALS: BP 98/49
--- NOTE | 2020-12-03 20:00 | NUR ---
Pt resting in bed when entering the room. Pt denies pain at this time. Pt used thin liquids with his medication with no complications. Pt was able to wiggle his left finger and toes, and about to lift up his left arm and leg. No other concerns at this time. Bed in lowest position, call light within reach, and bed alarm on.
--- NOTE | 2020-12-04 00:45 | NUR ---
Report received from Maria Elena CASTELLANOS. Patient rests in bed with eyes closed. Respirations with ease.
[2020-12-04 06:12] VITALS: BP 120/56
--- NOTE | 2020-12-04 06:32 | NUR ---
Patient awakened for med. Denies pain. State he finally did get some sleep. Repositioned up in bed.
[2020-12-04] MEDS ORDERED: CLOPIDOGREL PO (08:26)
[2020-12-04] MEDS ORDERED: DICLOFENAC SOD100 GM TP (08:27)
[2020-12-04] MEDS ORDERED: HEALTHYLAX17 GM/Dose PO (08:28)
[2020-12-04] MEDS ORDERED: ACETAMINOPHEN325 M1 PO (08:28)
[2020-12-04] MEDS ORDERED: DOCUSATE SOD100 MG PO (08:28)
--- NOTE | 2020-12-04 11:00 | NUR ---
the pt is discharged to [facility] at this time. the pt is alert and oriented at time of discharge. the pt has appropriate conversation. the pt is provided discharge instructions and education and her verbalizes understanding. these instructions are also provided to nurse Sandy with [facility] as well as report. she denies any questions or concerns. the pt is taken [facility] via wheelchair with all personal belongings. vss and respirations even and unlabored.
== END 2020-12-04 11:00 | DRG 57 ==
LOC: MED/SURG 12:02
PROVIDERS: Family Medicine; Nurse Practitioner Family; ADMIT Physician Assistant
DX: I69.354 Hemiplegia and hemiparesis following cerebral infarction affecting left non-dominant side (principal); R13.10 Dysphagia, unspecified; D63.1 Anemia in chronic kidney disease; M54.5 Low back pain; I10 Essential (primary) hypertension; R53.81 Other malaise; M25.552 Pain in left hip; Z66 Do not resuscitate; Z20.822 Contact with and (suspected) exposure to COVID-19; R55 Syncope and collapse; Z79.82 Long term (current) use of aspirin
CPT/HCPCS: J2310

== ENCOUNTER 2021-02-21 00:01 | Emergency (ER) | payer MEDICARE, OTHER ==
[~2021-02-21 00:01] MED LIST changes: +ACETAMINOPHEN325 M1 PO; +CLOPIDOGREL PO; +COZAAR25 M1 PO; +DICLOFENAC SOD100 GM TP; +DOCUSATE SOD100 MG PO; +HEALTHYLAX17 GM/Dose PO; -LOSARTAN POTASS50 M1 PO
[2021-02-21 01:32] LABS: HEMATOCRIT 36.7 % (42.0-52.0); HEMOGLOBIN 11.7 g/dL (13.5-18.0); MEAN CELL VOLUME 98 fl (78-100); MEAN CORPUSCULAR HEMOGLOBIN 31 pg (27-31); MEAN CORPUSCULAR HGB CONC 32 g/dL (33-37); MEAN PLATELET VOLUME 10.8 fl (7.4-10.4); PLATELET COUNT 210 K/mm3 (130-400); RED BLOOD COUNT 3.73 M/mm3 (4.20-5.60); RED CELL DISTRIBUTION WIDTH 14.8 % (11.5-14.5); WHITE BLOOD COUNT 9.6 K/mm3 (4.8-10.8)
[2021-02-21 01:45] LABS: ALBUMIN 3.4 g/dL (3.4-4.8)
[2021-02-21 01:46] LABS: POTASSIUM 4.7 mmol/L (3.5-5.1)
[2021-02-21 01:47] LABS: CALCIUM 9.3 mg/dL (8.3-10.5)
[2021-02-21 01:48] LABS: TOTAL PROTEIN 5.8 g/dL (6.2-8.1)
[2021-02-21 01:50] LABS: TOTAL BILIRUBIN 0.7 mg/dL (0.2-1.2)
[2021-02-21 02:30] LABS: BAND 2 % (0-10); LYMPHOCYTE 4 % (20-51); MONOCYTE 0 % (3-10); NEUTROPHILS 94 % (42-75)
[2021-02-21] MEDS ORDERED: LIPITOR 40MG TA40 MG PO (02:34)
[2021-02-21] MEDS ORDERED: BISACODYL RC (02:38)
[2021-02-21] MEDS ORDERED: TOPCARE MI1200 MG/15 PO (02:40)
[2021-02-21 08:17] LABS: URINE APPEARANCE CLOUDY; URINE BILIRUBIN NEGATIVE (NEGATIVE); URINE BLOOD NEGATIVE (NEGATIVE); URINE COLOR YELLOW; URINE GLUCOSE NEGATIVE (NEGATIVE); URINE KETONE NEGATIVE (NEGATIVE); URINE LEUKOCYTE ESTERASE 2+ (NEGATIVE); URINE NITRATE NEGATIVE (NEGATIVE); URINE PROTEIN(semi-quant) NEGATIVE (NEGATIVE); URINE UROBILINOGEN NORMAL (NORMAL); URINE WBC >50 /hpf (0-3)
[2021-02-21] MEDS ORDERED: CEPHALEXIN500 M1 PO (12:37)
[2021-02-21 13:13] VITALS: BP 130/64
== END 2021-02-21 13:13 | disposition home or self-care (01) ==
LOC: ED 00:01
PROVIDERS: Family Medicine
DX: I95.1 Orthostatic hypotension (principal); N39.0 Urinary tract infection, site not specified; Z86.73 Personal history of transient ischemic attack (TIA), and cerebral infarction without residual deficits; I10 Essential (primary) hypertension; Z79.01 Long term (current) use of anticoagulants; Z79.82 Long term (current) use of aspirin; Z79.899 Other long term (current) drug therapy
CPT/HCPCS: J1885; J7030

== ENCOUNTER 2021-02-25 11:22 | Emergency (ER) | payer MEDICARE ==
[~2021-02-25 11:22] MED LIST changes: +BISACODYL RC; +CEPHALEXIN500 M1 PO; +LIPITOR 40MG TA40 MG PO; +TOPCARE MI1200 MG/15 PO
[2021-02-25 11:53] LABS: HEMATOCRIT 33.6 % (42.0-52.0); HEMOGLOBIN 10.7 g/dL (13.5-18.0); MEAN CELL VOLUME 98 fl (78-100); MEAN CORPUSCULAR HEMOGLOBIN 31 pg (27-31); MEAN CORPUSCULAR HGB CONC 32 g/dL (33-37); PLATELET COUNT 246 K/mm3 (130-400); RED BLOOD COUNT 3.44 M/mm3 (4.20-5.60); WHITE BLOOD COUNT 17.2 K/mm3 (4.8-10.8)
[2021-02-25 12:04] LABS: ALBUMIN 2.8 g/dL (3.4-4.8)
[2021-02-25 12:05] LABS: POTASSIUM 4.3 mmol/L (3.5-5.1)
[2021-02-25 12:06] LABS: CALCIUM 9.7 mg/dL (8.3-10.5)
[2021-02-25 12:07] LABS: LYMPHOCYTE 6 % (20-51); MONOCYTE 9 % (3-10); NEUTROPHILS 85 % (42-75); TOTAL PROTEIN 6.1 g/dL (6.2-8.1)
[2021-02-25 12:09] LABS: TOTAL BILIRUBIN 0.5 mg/dL (0.2-1.2)
[2021-02-25 14:00] VITALS: BP 129/71
[2021-02-25 14:12] LABS: URINE APPEARANCE CLOUDY; URINE BILIRUBIN NEGATIVE (NEGATIVE); URINE BLOOD NEGATIVE (NEGATIVE); URINE COLOR DARK YELLOW; URINE GLUCOSE NEGATIVE (NEGATIVE); URINE KETONE NEGATIVE (NEGATIVE); URINE LEUKOCYTE ESTERASE NEGATIVE (NEGATIVE); URINE NITRATE NEGATIVE (NEGATIVE); URINE PROTEIN(semi-quant) 1+ mg/dL (NEGATIVE); URINE UROBILINOGEN NORMAL (NORMAL)
== END 2021-02-25 14:00 | disposition other institution (70) ==
LOC: ED 11:22
PROVIDERS: Nurse Practitioner Primary Care
DX: N39.0 Urinary tract infection, site not specified (principal); I10 Essential (primary) hypertension; G89.29 Other chronic pain; M54.9 Dorsalgia, unspecified; E07.9 Disorder of thyroid, unspecified; Z86.73 Personal history of transient ischemic attack (TIA), and cerebral infarction without residual deficits; Z79.02 Long term (current) use of antithrombotics/antiplatelets; Z79.82 Long term (current) use of aspirin
CPT/HCPCS: J0696; J7030

== ENCOUNTER 2021-02-25 13:10 | Inpatient (IN) | payer MEDICARE ==
[2021-02-25 14:10] VITALS: BP 129/71
[2021-02-25 14:24] VITALS: BP 129/71
[2021-02-25 17:37] VITALS: BP 152/62
[2021-02-25 21:42] VITALS: BP 140/70
[2021-02-26 02:00] VITALS: BP 120/67
[2021-02-26 06:26] VITALS: BP 137/63
[2021-02-26 07:37] LABS: HEMATOCRIT 31.3 % (42.0-52.0); HEMOGLOBIN 10.2 g/dL (13.5-18.0); MEAN CELL VOLUME 97 fl (78-100); MEAN CORPUSCULAR HEMOGLOBIN 32 pg (27-31); MEAN CORPUSCULAR HGB CONC 33 g/dL (33-37); MEAN PLATELET VOLUME 10.8 fl (7.4-10.4); PLATELET COUNT 231 K/mm3 (130-400); RED BLOOD COUNT 3.22 M/mm3 (4.20-5.60); WHITE BLOOD COUNT 14.4 K/mm3 (4.8-10.8)
[2021-02-26 07:57] LABS: LYMPHOCYTE 5 % (20-51); MONOCYTE 10 % (3-10); NEUTROPHILS 84 % (42-75)
[2021-02-26 09:28] VITALS: BP 119/63
[2021-02-26 14:02] VITALS: BP 156/73
[2021-02-26 17:19] VITALS: BP 148/69
[2021-02-26 22:02] VITALS: BP 151/67
[2021-02-27 02:09] VITALS: BP 187/68
[2021-02-27 05:42] VITALS: BP 158/68
[2021-02-27 07:24] LABS: HEMATOCRIT 29.4 % (42.0-52.0); HEMOGLOBIN 9.5 g/dL (13.5-18.0); MEAN CELL VOLUME 97 fl (78-100); MEAN CORPUSCULAR HEMOGLOBIN 31 pg (27-31); MEAN CORPUSCULAR HGB CONC 32 g/dL (33-37); MEAN PLATELET VOLUME 10.5 fl (7.4-10.4); PLATELET COUNT 230 K/mm3 (130-400); RED BLOOD COUNT 3.03 M/mm3 (4.20-5.60); WHITE BLOOD COUNT 10.8 K/mm3 (4.8-10.8)
[2021-02-27 07:35] LABS: LYMPHOCYTE 9 % (20-51); MONOCYTE 11 % (3-10); NEUTROPHILS 78 % (42-75); POTASSIUM 3.4 mmol/L (3.5-5.1)
[2021-02-27 07:36] LABS: CALCIUM 8.2 mg/dL (8.3-10.5)
[2021-02-27 09:25] VITALS: BP 134/70
[2021-02-27 14:19] VITALS: BP 122/51
[2021-02-27 18:10] VITALS: BP 137/63
[2021-02-27 22:06] VITALS: BP 143/62
[2021-02-28 02:00] VITALS: BP 150/62
[2021-02-28 06:06] VITALS: BP 158/66
[2021-02-28 10:20] VITALS: BP 152/70
[2021-02-28 14:01] VITALS: BP 142/75
[2021-02-28 17:51] VITALS: BP 111/62
[2021-02-28 22:33] VITALS: BP 155/72
[2021-03-01 01:44] VITALS: BP 147/66
[2021-03-01 05:42] VITALS: BP 152/74
[2021-03-01 05:52] LABS: URINE WBC 0 /hpf (0-3)
[2021-03-01 07:44] LABS: POTASSIUM 3.8 mmol/L (3.5-5.1)
[2021-03-01 08:12] LABS: URINE APPEARANCE CLEAR; URINE BILIRUBIN NEGATIVE (NEGATIVE); URINE BLOOD NEGATIVE (NEGATIVE); URINE COLOR YELLOW; URINE GLUCOSE NEGATIVE (NEGATIVE); URINE KETONE NEGATIVE (NEGATIVE); URINE LEUKOCYTE ESTERASE NEGATIVE (NEGATIVE); URINE NITRATE NEGATIVE (NEGATIVE); URINE PROTEIN(semi-quant) NEGATIVE (NEGATIVE); URINE UROBILINOGEN NORMAL (NORMAL)
[2021-03-01 10:00] VITALS: BP 133/69
[2021-03-01] MEDS ORDERED: CEFTRIAXON1 GM/50 ML IV (12:40)
== END 2021-03-01 13:32 | DRG 690 ==
LOC: MED/SURG 13:10
PROVIDERS: Family Medicine; ADMIT Nurse Practitioner Primary Care
DX: N39.0 Urinary tract infection, site not specified (principal); Z68.1 Body mass index [BMI] 19.9 or less, adult; I69.354 Hemiplegia and hemiparesis following cerebral infarction affecting left non-dominant side; I10 Essential (primary) hypertension; R62.7 Adult failure to thrive; G89.29 Other chronic pain; M25.512 Pain in left shoulder; E78.5 Hyperlipidemia, unspecified; Z66 Do not resuscitate; Z79.82 Long term (current) use of aspirin; Z79.1 Long term (current) use of non-steroidal anti-inflammatories (NSAID)
CPT/HCPCS: C9113; J0696; J1650; J3480; J7030

== ENCOUNTER → 2021-05-06 | Outpatient (CLI) | payer MEDICARE ==
[~2021-05-06] MED LIST changes: +CEFTRIAXON1 GM/50 ML IV
[2021-05-06 11:27] LABS: HEMATOCRIT 37.2 % (42.0-52.0); HEMOGLOBIN 11.8 g/dL (13.5-18.0); MEAN PLATELET VOLUME 11.3 fl (7.4-10.4); RED BLOOD COUNT 3.88 M/mm3 (4.20-5.60); RED CELL DISTRIBUTION WIDTH 15.2 % (11.5-14.5); WHITE BLOOD COUNT 8.4 K/mm3 (4.8-10.8)
[2021-05-06 11:29] LABS: ALBUMIN 3.1 g/dL (3.4-4.8); POTASSIUM 4.2 mmol/L (3.5-5.1)
[2021-05-06 11:30] LABS: CALCIUM 9.5 mg/dL (8.3-10.5)
[2021-05-06 11:32] LABS: TOTAL PROTEIN 6.2 g/dL (6.2-8.1)
[2021-05-06 11:33] LABS: TOTAL BILIRUBIN 0.9 mg/dL (0.2-1.2)
[2021-05-06 11:55] LABS: URINE APPEARANCE CLOUDY; URINE BILIRUBIN NEGATIVE (NEGATIVE); URINE BLOOD NEGATIVE (NEGATIVE); URINE COLOR YELLOW; URINE GLUCOSE NEGATIVE (NEGATIVE); URINE KETONE NEGATIVE (NEGATIVE); URINE LEUKOCYTE ESTERASE TRACE (NEGATIVE); URINE NITRATE NEGATIVE (NEGATIVE); URINE PROTEIN(semi-quant) NEGATIVE (NEGATIVE); URINE UROBILINOGEN 8 mg/dL (NORMAL)
[2021-05-06 11:56] LABS: URINE MUCUS PRESENT (NOT PRESENT)
== END ==
LOC: LAB 10:41
PROVIDERS: Family Medicine
DX: N39.43 Post-void dribbling (principal)

== ENCOUNTER → 2021-05-13 | Outpatient (CLI) | payer MEDICARE, OTHER | LOC: RAD 07:54 | DX: K80.20 Calculus of gallbladder without cholecystitis without obstruction (principal) ==